=== PATIENT | female | born 1975 | race Caucasian/White ===

== ENCOUNTER → 2019-09-14 15:55 | Outpatient (CLI) | payer OTHER, SELFPAY ==
[2014-02-15 06:41] VITALS: BMI 25.0
--- NOTE | 2019-09-14 | EGD_PTH ---
PATIENT: SHONNA ERAZO LOC: [facility] U#:[id number] AGE/SX: 50/F ROOM: RE09/14/[address]: Dr. Augustin Schaeffer MD : 1975 BED: DIS: SPEC #: [id number] RECD: 09/14/19 15:34 STATUS: AVI JOAQUIM #: [id number] ALEXIS: 09/14/19 00:[address]: Augustin Schaeffer DEPT: SURGICAL PATHOLOGY RECD BY: Humza Tamayo ENTERED: 09/15/19 08:40 SP TYPE: EGD BIOPSY OTHR DR: Dr. Rodrigue Michaels DO Tissues: A - Jejunum, NOS B - Gastric mucous membrane C - Esophageal mucous membrane D - Esophageal mucous membrane E - Ileum, NOS F - COLON BIOPSY Procedures: Special Stain Group II Surgery Specimen Level IV Alcian Blue/PAS (control) HEADER OPERATION: EGD with biopsy; colonoscopy with biopsies PRE-OP DIAGNOSIS: R19.4, R10.11 TISSUE SUBMITTED: A - Jejunum biopsy, B - Antral biopsy H/H, C - Distal esophageal biopsy, D - Mid esophageal biopsy, E - Terminal ileum biopsy, F - Random colon biopsies MICROSCOPIC DIAGNOSIS A. Jejunum, biopsy: A fragment of small intestinal mucosa, no pathologic diagnosis. B. Antral biopsy: Mild gastritis. See microscopic description and comment. C. Distal esophageal biopsy: A fragment of gastroesophageal mucosa with chronic inflammation. Intestinal metaplasia (goblet cell metaplasia) is not identified. See comment. D. Mid esophageal biopsy: Fragments of gastroesophageal mucosa with mild chronic inflammation. Intestinal metaplasia (goblet cell metaplasia) is not identified. See comment. E. Terminal ileum, biopsy: A fragment of small intestinal mucosa, no pathologic diagnosis. F. Colon, random biopsy: Fragments of colonic mucosa, no pathologic diagnosis. SJ:nicolle 09/16/19 COMMENT B. The results of immunohistochemistry for Helicobacter pylori will be reported separately ([id number]). C. Alcian blue/PAS stain with matched control is used in the evaluation of the specimen. D. The specimen predominantly consists of squamous mucosa. Alcian blue/PAS stain with matched control is used in the evaluation of the specimen and non-contributory, the fragment of gastric mucosa consists of only a minute fragment and is not present in the special stain slide. MICROSCOPIC DESCRIPTION Slides are reviewed. B. The specimen shows fragments of gastric mucosa with chronic inflammatory cell infiltrates in the lamina propria consisting of lymphocytes and plasma cells, consistent with mild chronic gastritis. GROSS DESCRIPTION A - Received in fixative is one container labeled with the patient's name and designated jejunum biopsy. The specimen consists of one irregular fragment of light mcnamara soft tissue that measures 0.4 x 0.3 x 0.1 cm. The specimen is totally submitted in one cassette. B - Received in fixative is one container labeled with the patient's name and designated antrum biopsy. The specimen consists of two irregular fragments of light mcnamara soft tissue that in aggregate measure 0.5 x 0.3 x 0.1 cm. The specimen is totally submitted in one cassette. C - Received in fixative is one container labeled with the patient's name and designated distal esophageal biopsy. The specimen consists of one irregular fragment of light mcnamara soft tissue that measures 0.3 x 0.3 x 0.1 cm. The specimen is totally submitted in one cassette. D - Received in fixative is one container labeled with the patient's name and designated mid esophageal biopsy. The specimen consists of two irregular fragments of light mcnamara soft tissue that in aggregate measure 0.5 x 0.3 x 0.1 cm. The specimen is totally submitted in one cassette. E - Received in fixative is one container labeled with the patient's name and designated terminal ileum biopsy. The specimen consists of one irregular fragment of light mcnamara soft tissue that measures 0.3 x 0.2 x 0.1 cm. The specimen is totally submitted in one cassette. F - Received in fixative is one container labeled with the patient's name and designated random colon biopsy. The specimen consists of multiple irregular fragments of light mcnamara soft tissue that in aggregate measure 0.8 x 0.4 x 0.1 cm. The specimen is totally submitted in one cassette. / SJ:rg 09/15/19 TC:3 CPT: 63196 x6, 91263 x2
--- NOTE | 2019-09-14 | IMM_PTH ---
PATIENT: SHONNA ERAZO LOC: [facility] U#:[id number] AGE/SX: 50/F ROOM: RE09/14/[address]: Dr. Augustin Schaeffer MD : 1975 BED: DIS: SPEC #: [id number] RECD: 09/15/19 13:02 STATUS: AVI REQ #: [id number] ALEXIS: 09/14/19 00:[address]: Augustin Schaeffer DEPT: IMMUNOHISTOCHEMISTRY RECD BY: Nanda Estes ENTERED: 09/15/19 13:04 SP TYPE: IMMUNO OTHR DR: Dr. Rodrigue Michaels DO Tissues: B - Stomach, NOS Procedures: H Pylori (initial) PHYSICIAN & INSTITUTION [place] [address] SPECIMEN INFORMATION: Tissue Source: B - Antrum biopsy Clinical Info: R19.4, R10.11 Specimen Number: [id number] CPT code: 97462 METHODOLOGY: Deparaffinized sections of prefer/formalin-fixed tissue or PAP/DQ stained slides are incubated with monoclonal/polyclonal antibodies/oligonucleotide probes. Localization is made via biotin free immunoperoxidase method. Appropriate controls are performed and reacted as expected. Results on target cell population are indicated in the following table: RESULTS: ANTIBODY / CLONE RESULT Block B H Pylori (polyclonal) negative These tests were developed and their performance characteristics determined by [facility]. They may not have been cleared or approved by the [place]. Food and Drug Administration. The FDA has determined that such clearance or approval is not necessary. INTERPRETATION: B. Antrum biopsy: Negative for Helicobacter pylori organisms. SJ:nicolle 09/16/19
== END ==
LOC: LABSPEC 15:58
PROVIDERS: Family Provider Student in an Organized Health Care Education/Training Program; PCP Student in an Organized Health Care Education/Training Program; Referring Provider Surgery; Visit Provider Surgery
DX: R19.4 Change in bowel habit (principal); R10.11 Right upper quadrant pain
CPT/HCPCS: 88305; 88313; 88342